=== PATIENT | male | born 1945 | race Caucasian/White ===

== ENCOUNTER 2017-05-14 12:46 | Inpatient (IN) | payer OTHER ==
[~2017-05-14] VITALS: Ht 180.3 cm; Wt 87.7 kg
[2017-05-14 13:28] LABS: HEMATOCRIT 50.4 % (38.0-50.0); HEMOGLOBIN 17.3 G/DL (12.5-16.6); MCH 30.7 PG (29.0-34.0); MCHC 34.3 G/DL (30.0-36.0); MCV 89.4 FL (86-99); PLATELET COUNT 206 K/uL (156-360); RBC DIS.WIDTH-CV 14.8 % (11.8-14.6); RBC DIS.WIDTH-SD 47.8 % (39-53); RED BLOOD COUNT 5.64 M/uL (4.00-5.50); WHITE BLOOD COUNT 13.3 K/uL (4.1-10.2)
[2017-05-14 13:37] LABS: CHLORIDE 107 mEq/L (99-109); POTASSIUM 4.7 mEq/L (3.7-5.4); SODIUM 140 mEq/L (136-147)
[2017-05-14 13:38] LABS: GLUCOSE 183 mg/dL (70-99)
[2017-05-14 13:42] LABS: GFR ESTIMATE (CALCULATED) > 59 mL/min/ (58.99-99999)
[2017-05-14 14:01] LABS: UREA NITROGEN (BUN) 17 mg/dL (9-23)
[2017-05-14 14:08] LABS: MAGNESIUM 1.9 mg/dL (1.3-2.7)
[2017-05-14] MEDS ORDERED: VENTOLIN HFA18 GM IH (14:57)
[2017-05-14] MEDS ORDERED: LITE COAT ASPI325 M1 PO (14:57)
[2017-05-14 17:58] LABS: TROP-I INTERPRETATION NEGATIVE; TROPONIN-I 0.05 ng/mL (0.0-0.30)
[2017-05-14 19:30] VITALS: BP 141/101
[2017-05-14 23:00] VITALS: BP 112/74
[2017-05-15 04:00] VITALS: BP 138/84
[2017-05-15 05:37] LABS: HEMATOCRIT 49.3 % (38.0-50.0); HEMOGLOBIN 16.7 G/DL (12.5-16.6); MCH 30.5 PG (29.0-34.0); MCHC 33.9 G/DL (30.0-36.0); PLATELET COUNT 200 K/uL (156-360); RBC DIS.WIDTH-CV 15.1 % (11.8-14.6); RBC DIS.WIDTH-SD 48.9 % (39-53); RED BLOOD COUNT 5.48 M/uL (4.00-5.50); WHITE BLOOD COUNT 12.9 K/uL (4.1-10.2)
[2017-05-15 05:55] LABS: TROP-I INTERPRETATION NEGATIVE; TROPONIN-I 0.04 ng/mL (0.0-0.30)
[2017-05-15 06:05] LABS: CHLORIDE 104 MEQ/L (99-109); CREATININE 1.1 MG/DL (0.6-1.3); GFR ESTIMATE (CALCULATED) > 59 mL/min/ (58.99-99999); GLUCOSE 185 mg/dL (70-99); HDL CHOLESTEROL 48 MG/DL (Desirable>=40); LDL CHOLESTEROL 95 mg/dL (Desirable<100); NON-HDL CHOLESTEROL 117 mg/dL (Desirable<160); POTASSIUM 4.8 MEQ/L (3.7-5.4); SODIUM 139 MEQ/L (136-147); TOTAL CHOLESTEROL 165 mg/dL (Desirable<200); TRIGLYCERIDES 112 MG/DL (Normal: <150); UREA NITROGEN (BUN) 20 mg/dL (9-23)
[2017-05-15 09:00] VITALS: BP 124/95
[2017-05-15 10:25] LABS: HEMOGLOBIN A1c (GLYCOHEMOGLOB) 8.4 % (Below 5.7)
[2017-05-15 12:08] VITALS: BP 147/84
[2017-05-15 17:55] VITALS: BP 126/88
[2017-05-15 20:00] VITALS: BP 132/90
[2017-05-16] VITALS (7 sets, daily range): BP systolic 91–130; BP diastolic 56–83
[2017-05-16 06:28] LABS: BASOPHIL (%) 0.3 % (0-1); BASOPHIL COUNT 0.1 K/uL (0-0.1); EOSINOPHIL (%) 0.1 % (0-5); HEMATOCRIT 48.3 % (38.0-50.0); HEMOGLOBIN 15.9 G/DL (12.5-16.6); IMMATURE GRANULOCYTE (%) 0.6 % (0.0-0.7); LYMPHOCYTE (%) 24.1 % (15-42); LYMPHOCYTE COUNT 3.9 K/uL (1.0-2.8); MCH 29.6 PG (29.0-34.0); MCHC 32.9 G/DL (30.0-36.0); MCV 89.9 FL (86-99); MONOCYTE (%) 9.6 % (3-12); MONOCYTE COUNT 1.6 K/uL (0-0.8); NEUTROPHIL (%) 65.3 % (45-76); NEUTROPHIL COUNT 10.7 K/uL (1.8-6.4); PLATELET COUNT 211 K/uL (156-360); RBC DIS.WIDTH-CV 15.1 % (11.8-14.6); RBC DIS.WIDTH-SD 48.8 % (39-53); RED BLOOD COUNT 5.37 M/uL (4.00-5.50); WHITE BLOOD COUNT 16.3 K/uL (4.1-10.2)
[2017-05-16 06:57] LABS: CHLORIDE 102 MEQ/L (99-109); CREATININE 1.2 MG/DL (0.6-1.3); GFR ESTIMATE (CALCULATED) > 59 mL/min/ (58.99-99999); GLUCOSE 197 mg/dL (70-99); POTASSIUM 4.7 MEQ/L (3.7-5.4); SODIUM 137 MEQ/L (136-147); UREA NITROGEN (BUN) 29 mg/dL (9-23)
[2017-05-16] MEDS ORDERED: ASPIR-LOW81 MG PO (15:34)
[2017-05-16] MEDS ORDERED: PREDNISONE10 MG PO (15:34)
[2017-05-16] MEDS ORDERED: METOPROLOL TART75 MG PO (15:34)
[2017-05-16] MEDS ORDERED: METFORMIN HCL500 MG PO (15:34)
[2017-05-16] MEDS ORDERED: LISINOPRIL5 MG PO (15:34)
[2017-05-16] MEDS ORDERED: ELIQUIS5 MG PO (15:34)
[2017-05-16] MEDS ORDERED: XOPENEX1.25 MG/0. AEROSOL (15:34)
[2017-05-16] MEDS ORDERED: GLIPIZIDE5 MG PO (15:34)
[2017-05-16] MEDS ORDERED: LASIX20 MG PO (15:35)
[2017-05-16] MEDS ORDERED: VENTOLIN HFA18 GM IH (15:47)
[2017-05-17 03:33] VITALS: BP 121/76
[2017-05-17 07:11] LABS: CHLORIDE 101 MEQ/L (99-109); CREATININE 1.3 MG/DL (0.6-1.3); GFR ESTIMATE (CALCULATED) 58 mL/min/ (58.99-99999); GLUCOSE 128 mg/dL (70-99); POTASSIUM 4.5 MEQ/L (3.7-5.4); SODIUM 138 MEQ/L (136-147); UREA NITROGEN (BUN) 40 mg/dL (9-23)
[2017-05-17 08:01] VITALS: BP 114/80
[2017-05-17 11:19] LABS: APPEARANCE SL.HAZY ((CLEAR)); BILIRUBIN NEGATIVE; BLOOD NEGATIVE; COLOR YELLOW ((YELLOW)); GLUCOSE (STRIP) NEGATIVE; KETONES NEGATIVE; LEUKOCYTES SMALL; NITRITE NEGATIVE; PROTEIN (STRIP) NEGATIVE; SPECIFIC GRAVITY 1.014 (1.000-1.030); UROBILINOGEN 0.2 MG/DL (0.2-1.0)
[2017-05-17 11:54] LABS: BACTERIA RARE /HPF; EPITHELIAL CELLS RARE /HPF; HYALINE CASTS 20-30 /LPF; MUCUS TRACE /LPF; RED BLOOD CELLS 0-5 /HPF (0-5); UCUL ADDED? YES
[2017-05-17 11:58] VITALS: BP 109/69
[2017-05-19] MEDS ORDERED: METFORMIN HCL500 MG PO (11:56)
== END 2017-05-17 14:17 | disposition home or self-care (01) | DRG 309 ==
LOC: EME → EDBD 12:46 → ENRESERV 14:55 → 5SOUTH 14:55 → 4EAST 14:55 → EDOF 14:55 → ENRESERV 17:33 → 4EAST 19:39 → ENRESERV 05-15 14:45 → 5SOUTH 05-15 18:40
PROVIDERS: Family Medicine; Hospitalist; Physician Assistant; Student in an Organized Health Care Education/Training Program
DX: I48.92 Unspecified atrial flutter (principal); J20.9 Acute bronchitis, unspecified; J44.0 Chronic obstructive pulmonary disease with (acute) lower respiratory infection; I42.0 Dilated cardiomyopathy; E11.9 Type 2 diabetes mellitus without complications; I11.9 Hypertensive heart disease without heart failure; I25.10 Atherosclerotic heart disease of native coronary artery without angina pectoris; F17.210 Nicotine dependence, cigarettes, uncomplicated; Z87.01 Personal history of pneumonia (recurrent); Z89.422 Acquired absence of other left toe(s)
CPT/HCPCS: 71045; 71046; 71275; 80048; 80061; 81003; 82948; 83036; 83735; 83880; 84484; 85025; 85027; 85379; 87086; 93005; 93306; 94799; 99202; 99281; 99285; J1815; J1940; J7512

== ENCOUNTER 2017-05-21 08:55 | Day surgery (SDC) | payer OTHER ==
[~2017-05-21] VITALS: Ht 180.3 cm; Wt 77.0 kg
[~2017-05-21 08:55] MED LIST: ASPIR-LOW81 MG PO; ELIQUIS5 MG PO; GLIPIZIDE5 MG PO; LASIX20 MG PO; LISINOPRIL5 MG PO; LITE COAT ASPI325 M1 PO; METFORMIN HCL500 MG PO; METOPROLOL TART75 MG PO; PREDNISONE10 MG PO; VENTOLIN HFA18 GM IH; XOPENEX1.25 MG/0. AEROSOL
== END 2017-05-21 15:30 | disposition home or self-care (01) ==
LOC: CATH 08:55
PROVIDERS: Internal Medicine Cardiovascular Disease
DX: I25.10 Atherosclerotic heart disease of native coronary artery without angina pectoris (principal); I42.9 Cardiomyopathy, unspecified; I50.20 Unspecified systolic (congestive) heart failure; Z79.01 Long term (current) use of anticoagulants
CPT/HCPCS: 82948; C1769; C1887; J1200; J1644; J2250; J7040